=== PATIENT | male | born 1960 | race Hispanic/Latino ===

== ENCOUNTER 2020-12-15 19:12 | Emergency (ER) | payer BC ==
[2020-12-15] MEDS ORDERED: Aspirin Chewable 81 MG TAB ONE (19:39)
[2020-12-15 20:01] LABS: Hemoglobin 15.5 g/dL (14.0-18.0); Mean Corpuscular HGB CONC 35.6 g/dL (32.0-36.0); Mean Corpuscular Hemoglobin 31.7 pg (27.0-31.0); Mean Corpuscular Volume 89.2 fL (78.0-98.0); Mean Platelet Volume 7.6 fL (7.4-10.4); Platelet Count 285 thou/uL (130-400); RBC Distribution Width 11.9 % (11.5-14.5); Red Blood Cell (RBC) Count 4.88 mill/uL (4.70-6.10); White Blood Cell (WBC) Count 13.1 thou/uL (4.8-10.8)
[2020-12-15 20:04] LABS: ALT (SGPT) 26 U/L (8-55); AST (SGOT) 29 U/L (5-34); Albumin 4.2 g/dL (3.4-4.8); Alkaline Phosphatase 71 U/L (40-110); Anion Gap 19 mmol/L (10-20); BUN (Urea Nitrogen) 17 mg/dL (8.4-25.7); Bilirubin, Total 0.6 mg/dL (0.2-1.2); CK (CPK) 141 U/L (30-200); Calc. Creatinine Clearance 0 mL/min (70-130); Calcium 10.1 mg/dL (7.8-10.44); Carbon Dioxide 19 mmol/L (23-31); Chloride 101 mmol/L (98-107); Globulin 3.9 g/dL (2.4-3.5); Glucose 210 mg/dL (80-115); Lipase 48 U/L (8-78); Potassium 3.7 mmol/L (3.5-5.1); Protein, Total 8.1 g/dL (5.8-8.1); Sodium 135 mmol/L (136-145)
[2020-12-15 20:15] LABS: MDiff Complete? YES
[2020-12-15 20:16] LABS: Band 1 % (5-11); Eosinophils 3 % (0-10); Lymphocytes 53 % (21-51); Monocytes 1 % (0-10); Neutrophil 40 % (42-75); Reactive Lymphocytes 1 % (0-10)
[2020-12-15] MEDS ORDERED: Acetaminophen 500 MG TAB ONE (20:59)
[2020-12-15] MEDS ORDERED: Famotidine/PF 20 mg/2ml Vial ONE (20:59)
[2020-12-15 23:16] LABS: Troponin I Less than 0.010 ng/mL (< 0.028)
== END 2020-12-15 23:42 | disposition home or self-care (01) ==
LOC: ERS 19:12
DX: R07.9 Chest pain, unspecified (principal); M79.602 Pain in left arm; R53.1 Weakness; R68.89 Other general symptoms and signs; E11.9 Type 2 diabetes mellitus without complications; Z79.84 Long term (current) use of oral hypoglycemic drugs
CPT/HCPCS: 36415; 36416; 71045; 80053; 82550; 83690; 84484; 85025; 93005; 96374; S0028

== ENCOUNTER 2021-01-09 18:53 | Observation (INO) | payer BC ==
[2021-01-09] MEDS ORDERED: Mag-Al 1200 mg/1200 mg/30 ML UDCUP ONE (19:45)
[2021-01-09] MEDS ORDERED: Lidocaine Viscous Sol 2% 15 ml UD Cup ONE (19:45)
[2021-01-09 19:47] LABS: #Basophils 0.1 thou/uL (0.0-0.2); #Eosinphils 0.3 thou/uL (0.0-0.7); #Lymphocytes 4.4 thou/uL (1.20-3.40); #Monocytes 0.7 thou/uL (0.11-0.59); %Basophils 0.4 % (0.0-1.0); %Eosinophils 2.3 % (0.0-10.0); %Lymphocytes 35.1 % (21.0-51.0); %Monocytes 5.3 % (0.0-10.0); %Neutrophils 56.8 % (42.0-75.0); Hemoglobin 15.4 g/dL (14.0-18.0); Mean Corpuscular Hemoglobin 30.9 pg (27.0-31.0); Mean Corpuscular Volume 90.8 fL (78.0-98.0); Mean Platelet Volume 7.8 fL (7.4-10.4); Platelet Count 300 thou/uL (130-400); White Blood Cell (WBC) Count 12.4 thou/uL (4.8-10.8)
[2021-01-09 20:37] LABS: ALT (SGPT) 24 U/L (8-55); AST (SGOT) 19 U/L (5-34); Albumin 4.4 g/dL (3.4-4.8); Alkaline Phosphatase 59 U/L (40-110); Anion Gap 15 mmol/L (10-20); BUN (Urea Nitrogen) 15 mg/dL (8.4-25.7); Bilirubin, Total 0.7 mg/dL (0.2-1.2); Calc. Creatinine Clearance 0 mL/min (70-130); Calcium 9.5 mg/dL (7.8-10.44); Carbon Dioxide 23 mmol/L (23-31); Chloride 103 mmol/L (98-107); Globulin 3.1 g/dL (2.4-3.5); Glucose 189 mg/dL (80-115); Potassium 4.1 mmol/L (3.5-5.1); Protein, Total 7.5 g/dL (5.8-8.1); Sodium 137 mmol/L (136-145)
[2021-01-09] MEDS ORDERED: Morphine 4 MG/ML VIAL ONE ×2 (20:40→22:34)
[2021-01-09] MEDS ORDERED: Ondansetron PF 4 MG/2 ML Vial ONE (20:40)
[2021-01-09] MEDS ORDERED: Piperacillin/Tazobactam 3.375 GM VIAL ONE (22:34)
[2021-01-09 23:45] LABS: SARS-CoV-2 NAA Rapid Test Not Detected (NotDetected)
[2021-01-10 00:06] VITALS: BMI 32.7
[2021-01-10] MEDS ORDERED: Morphine 4 MG/ML VIAL SLOW IVP PRN (00:29)
[2021-01-10] MEDS ORDERED: Ondansetron ODT 4 MG TAB SL PRN (00:30)
[2021-01-10] MEDS ORDERED: Ondansetron PF 4 MG/2 ML Vial IVP PRN (00:30)
[2021-01-10] MEDS ORDERED: Sodium Chloride 0.9% 1,000 ML IV SCH (00:30)
[2021-01-10] MEDS ORDERED: HumaLOG 300 UNITS/3 ML VIAL SC PRN (00:45)
[2021-01-10] MEDS ORDERED: Dextrose 5% in Water 1,000 ML IV PRN (00:45)
[2021-01-10] MEDS ORDERED: Dextrose 50% Abboject 50 ML SYRINGE IVP PRN (00:45)
[2021-01-10] MEDS: Piperacillin/Tazobactam 3.375 GM in Sodium Chloride 0.9% 100 ML IVPB SCH ×2 (04:20→12:20)
[2021-01-10] MEDS ORDERED: Ketorolac Tromethamine 30 MG/ML VIAL IVP PRN (07:40)
[2021-01-10] MEDS ORDERED: Ketorolac Tromethamine 30 MG/ML VIAL IVP SCH (07:45)
[2021-01-10] MEDS ORDERED: Piperacillin/Tazobactam 3.375 GM in Sodium Chloride 0.9% 100 ML IVPB SCH (07:45)
[2021-01-10] MEDS: Sodium Chloride 0.9% 1,000 ML IV SCH ×2 (09:11→22:11)
[2021-01-10] MEDS ORDERED: Piperacillin/Tazobactam 3.375 GM VIAL ONE (12:08)
[2021-01-10] MEDS ORDERED: Sodium Chloride 0.9% 100 ML ONE (12:08)
[2021-01-10] MEDS ORDERED: Fentanyl 100 MCG/2 ML VIAL ONE (14:34)
[2021-01-10] MEDS ORDERED: Lidocaine 1% w/Epinephrine 1:100K 20 ML VIAL ONE (14:35)
[2021-01-10] MEDS ORDERED: Bupivacaine 0.25% HCL 30 ML VIAL ONE (14:35)
[2021-01-10] MEDS ORDERED: Glycopyrrolate 0.2 MG/ML 5 ML SYRINGE ONE (14:55)
[2021-01-10] MEDS ORDERED: PROPOFOL 200 MG/20 ML VIAL ONE (14:55)
[2021-01-10] MEDS ORDERED: Dexamethasone 20 MG/5 ML VIAL ONE (14:55)
[2021-01-10] MEDS ORDERED: PHENYLEPHRINE-NS 100 MCG/ML 10 ML SYRINGE ONE (14:55)
[2021-01-10] MEDS ORDERED: Lidocaine 1% PF 5 ML VIAL ONE (14:55)
[2021-01-10] MEDS ORDERED: diphenhydrAMINE 50 MG/ML VIAL ONE (14:55)
[2021-01-10] MEDS ORDERED: Ondansetron PF 4 MG/2 ML Vial ONE (14:55)
[2021-01-10] MEDS ORDERED: Rocuronium Bromide 10 MG/ML (10ML VIAL) ONE (14:55)
[2021-01-10] MEDS ORDERED: HYDROcodone/Acetaminophen 7.5/325 mg Tablet PO PRN ×2 (15:07)
[2021-01-10] MEDS ORDERED: Acetaminophen 500 MG TAB PO PRN (15:07)
[2021-01-10] MEDS ORDERED: Ibuprofen 600 MG TAB PO PRN (15:07)
[2021-01-10] MEDS ORDERED: Ondansetron HCl/PF 4 MG/2 ML Vial IVP PRN (16:12)
[2021-01-10] MEDS ORDERED: Amoxicillin/Potassium Clav 875 MG TAB PO SCH (21:00)
[2021-01-11] MEDS ORDERED: Piperacillin/Tazobactam 3.375 GM in Sodium Chloride 0.9% 100 ML IVPB SCH ×2 (05:30→14:00)
[2021-01-11] MEDS: Sodium Chloride 0.9% 1,000 ML IV SCH (05:34)
[2021-01-11 08:15] VITALS: BP 132/73; TEMP 97.9
== END 2021-01-11 09:32 | disposition home or self-care (01) ==
LOC: ERS 18:53 → SJJU 22:18
PROVIDERS: ADMIT Surgery; ATTEND Surgery
PROC: 0FT44ZZ Resection of Gallbladder, Percutaneous Endoscopic Approach (ICD-10-PCS; principal; 2021-01-10)
DX: K80.12 Calculus of gallbladder with acute and chronic cholecystitis without obstruction (principal); K76.0 Fatty (change of) liver, not elsewhere classified; E11.9 Type 2 diabetes mellitus without complications; I10 Essential (primary) hypertension; Z79.84 Long term (current) use of oral hypoglycemic drugs; Z20.822 Contact with and (suspected) exposure to COVID-19
CPT/HCPCS: 36415; 36416; 71045; 76705; 80053; 83690; 84484; 85025; 85379; 88304; 93005; 96374; 96375; 96376; G0378; J1100; J1200; J1885; J2270; J2405; J2543; J2704; J3010; J3490; J7050; J7620; S0020; U0002